=== PATIENT | male | born 1945 | race Caucasian/White ===

== ENCOUNTER 2017-04-12 05:45 | Day surgery (SDC) | payer OTHER ==
[~2017-04-12] VITALS: Ht 188 cm; Wt 108.9 kg
[~2017-04-12 05:45] MED LIST: ALBUTEROL2.5 MG/0.1 INH; ALDARA1 EACH TP; ALLOPURINOL 10100 M1 PO; ASPIR 8181 MG PO; ATORVASTATIN CA40 MG PO; CIALIS10 MG PO; CLONIDINE0.1 PO; FISH OIL 1,001000 M2 PO; FISH OIL 1,2001 EACH PO; FOLIC ACID1 MG PO; HYDRALAZINE 2525 MG PO; LISINOPRIL PO; NITROGLYCERIN0.4 MG SUBLING; OMEPRAZOLE20 M1 PO; PRESERVISION T1 EACH PO; RESTASIS1 EACH OPHTHALMIC; SINGULAIR 10 MG10 M1 PO; SYMBICORT160 MCG/4. INH; VITAMIN D2000 UNIT PO
[2017-04-12 14:02] VITALS: BP 161/75
== END 2017-04-12 15:26 | disposition home or self-care (01) ==
LOC: OR → TBA 05:46 → OR 10:42
DX: H02.105 Unspecified ectropion of left lower eyelid (principal); H02.102 Unspecified ectropion of right lower eyelid; J45.909 Unspecified asthma, uncomplicated; I10 Essential (primary) hypertension; I25.10 Atherosclerotic heart disease of native coronary artery without angina pectoris; N28.9 Disorder of kidney and ureter, unspecified; I25.2 Old myocardial infarction; E78.5 Hyperlipidemia, unspecified; K21.9 Gastro-esophageal reflux disease without esophagitis; M10.9 Gout, unspecified; Z98.890 Other specified postprocedural states; Z79.899 Other long term (current) drug therapy; Z88.8 Allergy status to other drugs, medicaments and biological substances; Z95.5 Presence of coronary angioplasty implant and graft; Z87.891 Personal history of nicotine dependence; Z85.828 Personal history of other malignant neoplasm of skin
CPT/HCPCS: 50010; 50101; 50386; 50398; 51636; 56527; 56531; 62110; 62850; 70005

== ENCOUNTER 2017-05-10 05:36 | Day surgery (SDC) | payer OTHER ==
[~2017-05-10] VITALS: Ht 188 cm; Wt 107.5 kg
--- NOTE | ~2017-05-10 | O ---
[facility] [place] [address] OPERATIVE REPORT Name: KEVIN PINEDA Room #: DEP [facility]..#: [id number] Admission: 05/10/17 Attend Phys: Jose M Ashley MD Discharge: 05/10/17 Date of : 41 Report #: [id number] THIS REPORT FOR: //name// CC: Dr. Fox Ashley DATE OF SERVICE: 05/10/2017 DEMURRAGE WORKER: None. PREOPERATIVE DIAGNOSIS: Bilateral upper lid ptosis with superior visual field defects both eyes. POSTOPERATIVE DIAGNOSIS: Bilateral upper lid ptosis with superior visual field defects both eyes. OPERATION PERFORMED: Bilateral upper lid functional ptosis repair. ANESTHESIA: Local with IV sedation. COMPLICATIONS: None. INDICATIONS FOR PROCEDURE: This patient has bilateral upper lid ptosis with superior visual field loss both eyes. Visual field testing demonstrates dense superior visual defects. Retesting with the upper lid elevated shows an improvement in visual field loss of over 30% and in excess of 12 degrees. The current procedure is being undertaken in order to improve the patient's visual function. Informed consent was obtained to include but not limited to the risk of loss of vision, bleeding, infection, scarring, failure to improve the problem and need for further surgery, such as adjustment of lid height. DESCRIPTION OF PROCEDURE: The patient was taken to the operating room, where 2% Xylocaine with epinephrine mixed with equal parts of 0.75% Marcaine with Wydase was administered transcutaneously to each upper lid. The patient was then prepped and draped in the usual sterile fashion. An upper lid crease incision was then made bilaterally and the dissection was carried down until the orbital septum was identified. The orbital septum was then cleared and the preaponeurotic fat identified. The levator aponeurosis was then disinserted from the anterior surface of the tarsal plate and dissected free in the avascular Whitlock's muscle plane. The aponeurosis was then advanced [address] [address] OPERATIVE REPORT Name: KEVIN PINEDA Room #: DEP [facility].#: [id number] Admission: 05/10/17 Attend Phys: Jose M Ashley MD Discharge: 05/10/17 Date of : 41 Report #: [id number] and reattached to the anterior surface of the tarsal plate with interrupted mattress 6-0 Novafil sutures on each side, adjusting for height and contour. The redundant aponeurosis was then amputated. The incision was then closed with multiple interrupted 6-0 chromic sutures that were used to recreate an upper lid crease. The skin was closed with a running 6-0 plain gut suture. The wound was then cleaned and dressed with ophthalmic antibiotic ointment followed by a Telfa pad. The patient was transported to the recovery area, having tolerated the procedure well with no anesthesia or operative complications being noted. <ELECTRONICALLY SIGNED> By: Jose M Ashley MD 05/17/17 0616 [id number] Jose M Ashley MD /daljit
[~2017-05-10 05:36] MED LIST changes: +LISINOPRIL20 MG PO; +PRINIVIL40 MG PO; +VENTOLIN HFA 1818 GM INH
[2017-05-10 13:05] VITALS: BP 136/66
== END 2017-05-10 13:57 | disposition home or self-care (01) ==
LOC: OR 05:36 → TBA 05:36 → OR 05:45
DX: H02.403 Unspecified ptosis of bilateral eyelids (principal); H53.462 Homonymous bilateral field defects, left side; H53.461 Homonymous bilateral field defects, right side; I10 Essential (primary) hypertension; I25.2 Old myocardial infarction; J45.909 Unspecified asthma, uncomplicated; E78.5 Hyperlipidemia, unspecified; K21.9 Gastro-esophageal reflux disease without esophagitis; M10.9 Gout, unspecified; Z98.890 Other specified postprocedural states; Z95.5 Presence of coronary angioplasty implant and graft; Z87.891 Personal history of nicotine dependence; Z85.828 Personal history of other malignant neoplasm of skin; Z88.8 Allergy status to other drugs, medicaments and biological substances; Z79.82 Long term (current) use of aspirin; Z79.899 Other long term (current) drug therapy
CPT/HCPCS: 50010; 50101; 50386; 50398; 51606; 51636; 56528; 56531; 62110; 62850; 70005

== ENCOUNTER 2017-10-04 06:54 | Day surgery (SDC) | payer OTHER ==
[~2017-10-04] VITALS: Ht 188 cm; Wt 108.9 kg
--- NOTE | ~2017-10-04 | O ---
[facility] [address] OPERATIVE REPORT Name: KEVIN PINEDA Room #: DEP [facility].#: [id number] Admission: 10/04/17 Attend Phys: Jose M Ashley MD Discharge: 10/04/17 Date of : 41 Report #: [id number] THIS REPORT FOR: //name// CC: Dr. Stu Ashley DATE OF SERVICE: 10/04/2017 SURGEON: Jose M Ashley MD AUTOMOTIVE COLLISION ESTIMATOR: None. PREOPERATIVE DIAGNOSIS: Bilateral upper lid dermatochalasia with superior visual field defect. POSTOPERATIVE DIAGNOSIS: Bilateral upper lid dermatochalasia with superior visual field defect. OPERATION PERFORMED: Bilateral upper lid functional blepharoplasty. ANESTHESIA: Local with IV sedation. COMPLICATIONS: None. 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 Visual field testing demonstrates dense superior visual defects. Retesting with the upper lid elevated shows an improvement in visual field loss of over 30% and in excess of 12 degrees. The current procedures are undertaken in order to improve the patient's visual function. Informed consent was obtained to include but not limited to the loss of vision, bleeding, infection, scarring, failure to improve the problem and need for further surgery. DESCRIPTION OF OPERATION: The patient was taken to the operating room, where 2% Xylocaine with epinephrine mixed with equal parts of 0.75% Marcaine with Wydase was administered transcutaneously to each upper lid. The patient was then prepped and draped in the usual sterile fashion and a skin-marking pen was then utilized to outline an upper lid crease that was symmetrical on each side. Graefe forceps were then used to quantitate the redundant upper lid skin and it was similarly outlined. The incisions were then made with Tabatha scissors and a skin-muscle flap removed from each side with high-temp cautery. [address] [address] OPERATIVE REPORT Name: KEVIN PINEDA Room #: DEP [facility].#: [id number] Admission: 10/04/17 Attend Phys: Jose M Ashley MD Discharge: 10/04/17 Date of : 41 Report #: [id number] was achieved with the monopolar cautery as it was throughout the case. The orbital septum was then identified and the central and medial fat pads were inspected. The redundant soft tissue was then sculpted with the monopolar cautery. The upper lid crease was then reformed with tightening of the pretarsal orbicularis muscle. The upper lid crease was then further reformed with multiple interrupted 6-0 chromic sutures. The skin was then closed with a running 6-0 plain gut suture. The wound was then cleaned and dressed with ophthalmic antibiotic ointment and a nonstick dressing. The patient was transported to the recovery area, where cold compresses were applied, having tolerated the procedure well with no anesthetic or operative complications being noted. <ELECTRONICALLY SIGNED> By: Jose M Ashley MD 10/11/17 0625 [id number] Jose M Ashley MD /nt
[~2017-10-04 06:54] MED LIST changes: +CLARITIN10 MG PO
[2017-10-04 11:45] VITALS: BP 128/69
== END 2017-10-04 16:19 | disposition home or self-care (01) ==
LOC: TBA 06:54 → OR 06:54 → TBA 06:55 → OR 08:25
DX: H02.834 Dermatochalasis of left upper eyelid (principal); H02.831 Dermatochalasis of right upper eyelid; H53.462 Homonymous bilateral field defects, left side; H53.461 Homonymous bilateral field defects, right side; I11.0 Hypertensive heart disease with heart failure; I25.2 Old myocardial infarction; E78.5 Hyperlipidemia, unspecified; J45.909 Unspecified asthma, uncomplicated; K21.9 Gastro-esophageal reflux disease without esophagitis; M10.9 Gout, unspecified; Z79.899 Other long term (current) drug therapy; Z87.891 Personal history of nicotine dependence; Z95.5 Presence of coronary angioplasty implant and graft; Z85.828 Personal history of other malignant neoplasm of skin; Z98.890 Other specified postprocedural states; Z79.82 Long term (current) use of aspirin; Z88.8 Allergy status to other drugs, medicaments and biological substances
CPT/HCPCS: 50010; 50101; 50386; 50398; 51636; 56531; 62110; 62850; 70005